=== PATIENT | male | born 1985 | race Two or more races ===

== ENCOUNTER 2018-06-09 15:24 | Emergency (ER) | payer SELFPAY ==
[~2018-06-09] VITALS: Ht 177.8 cm; Wt 81.6 kg
--- NOTE | 2018-06-09 16:12 | PHYS DOC ---
Adult General Chief Complaint Chief Complaint: ABDOMINAL PAIN HPI HPI Patient is a 32 year old medical presents with mild right upper quadrant abdominal pain intermittently for 2 weeks. Patient describes the pain as sharp. Denies any nausea vomiting, denies any diarrhea. Denies any chance he is constipated. Patient states his pain is sometimes relieved with burping. Review of Systems Review of Systems Constitutional: Denies fever or chills [] Eyes: Denies change in visual acuity, redness, or eye pain [] HENT: Denies nasal congestion or sore throat [] Respiratory: Denies cough or shortness of breath [] Cardiovascular: No additional information not addressed in HPI [] GI: Reports right upper quadrant abdominal pain, denies nausea, vomiting, bloody stools or diarrhea [] : Denies dysuria or hematuria [] Musculoskeletal: Denies back pain or joint pain [] Integument: Denies rash or skin lesions [] Neurologic: Denies headache, focal weakness or sensory changes [] All other systems were reviewed and found to be within normal limits, except as documented in this note. Current Medications Current Medications Current Medications Medications (Trade) Dose Ordered Sig/Shanelle Start Time Stop Time Status Last Admin Dose Admin Famotidine (Pepcid Vial) 20 mg 1X ONCE 06/09/18 16:15 06/09/18 17:29 DC Fentanyl Citrate (Fentanyl 2ml Vial) 50 mcg 1X ONCE 06/09/18 16:15 18 17:29 DC Sodium Chloride 1,000 ml @ 1,000 mls/hr 1X ONCE 06/09/18 16:15 18 17:29 DC 18 17:25 1,000 MLS/HR Allergies Allergies Allergies Coded Allergies Type Severity Reaction Last Updated Verified No Known Drug Allergies 06/09/18 No Physical Exam Physical Exam Constitutional: Well developed, well nourished, no acute distress, non-toxic appearance. [] HENT: Normocephalic, atraumatic, bilateral external ears normal, oropharynx moist, no oral exudates, nose normal. [] Eyes: PERRLA, EOMI, conjunctiva normal, no discharge. [] Neck: Normal range of motion, no tenderness, supple, no stridor. [] Cardiovascular:Heart rate regular rhythm, no murmur [] Lungs & Thorax: Bilateral breath sounds clear to auscultation [] Abdomen: Bowel sounds normal, soft, mild tenderness to the right upper quadrant with negative Blackwell sign, no right lower quadrant tenderness, no guarding, no rebound tenderness negative psoas sign, negative obturator sign, negative Rovsing sign, no masses, no pulsatile masses. [] Skin: Warm, dry, no erythema, no rash. [] Back: No tenderness, no CVA tenderness. [] Extremities: No tenderness, no cyanosis, no clubbing, ROM intact, no edema. [] Neurologic: Alert and oriented X 3, normal motor function, normal sensory function, no focal deficits noted. [] Psychologic: Affect normal, judgement normal, mood normal. [] Current Patient Data Vital Signs Vital Signs Date Time Temp Pulse Resp B/P (MAP) Pulse Ox O2 Delivery O2 Flow Rate FiO2 06/09/18 18:35 76 118/70 (86) 96 06/09/18 17:30 16 Room Air 06/09/18 15:55 98.5 98.5 Lab Values Laboratory Tests Test 06/09/18 16:30 06/09/18 17:15 White Blood Count 8.1 x10^3/uL (4.0-11.0) Red Blood Count 5.23 x10^6/uL (4.30-5.70) Hemoglobin 16.3 g/dL (13.0-17.5) Hematocrit 46.4 % (39.0-53.0) Mean Corpuscular Volume 89 fL (79-100) Mean Corpuscular Hemoglobin 31 pg (25-35) Mean Corpuscular Hemoglobin Concent 35 g/dL (31-37) Red Cell Distribution Width 13.1 % (11.5-14.5) Platelet Count 202 x10^3/uL (140-400) Neutrophils (%) (Auto) 72 % (31-73) Lymphocytes (%) (Auto) 22 % (24-48) L Monocytes (%) (Auto) 6 % (0-9) Eosinophils (%) (Auto) 0 % (0-3) Basophils (%) (Auto) 0 % (0-3) Neutrophils # (Auto) 5.8 x10^3uL (1.8-7.7) Lymphocytes # (Auto) 1.8 x10^3/uL (1.0-4.8) Monocytes # (Auto) 0.4 x10^3/uL (0.0-1.1) Eosinophils # (Auto) 0.0 x10^3/uL (0.0-0.7) Basophils # (Auto) 0.0 x10^3/uL (0.0-0.2) Sodium Level 140 mmol/L (136-145) Potassium Level 3.6 mmol/L (3.5-5.1) Chloride Level 104 mmol/L (98-107) Carbon Dioxide Level 25 mmol/L (21-32) Anion Gap 11 (6-14) Blood Urea Nitrogen 13 mg/dL (8-26) Creatinine 1.0 mg/dL (0.7-1.3) Estimated GFR (Cockcroft-Gault) 86.6 BUN/Creatinine Ratio 13 (6-20) Glucose Level 96 mg/dL (70-99) Calcium Level 9.5 mg/dL (8.5-10.1) Total Bilirubin 0.8 mg/dL (0.2-1.0) Aspartate Amino Transferase (AST) 31 U/L (15-37) Alanine Aminotransferase (ALT) 71 U/L (16-63) H Alkaline Phosphatase 86 U/L (46-116) Total Protein 7.9 g/dL (6.4-8.2) Albumin 4.2 g/dL (3.4-5.0) Albumin/Globulin Ratio 1.1 (1.0-1.7) Lipase 129 U/L (73-393) Ethyl Alcohol Level < 10 mg/dL (0-10) Urine Collection Type Unknown Urine Color Yellow Urine Clarity Clear Urine pH 6.5 Urine Specific Bronson 1.010 Urine Protein Negative mg/dL (NEG-TRACE) Urine Glucose (UA) Negative mg/dL (NEG) Urine Ketones (Stick) Negative mg/dL (NEG) Urine Blood Negative (NEG) Urine Nitrite Negative (NEG) Urine Bilirubin Negative (NEG) Urine Urobilinogen Dipstick 0.2 mg/dL (0.2 mg/dL) Urine Leukocyte Esterase Negative (NEG) Urine RBC 0 /HPF (0-2) Urine WBC 0 /HPF (0-4) Urine Bacteria 0 /HPF (0-FEW) Urine Opiates Screen Neg (NEG) Urine Methadone Screen Neg (NEG) Urine Barbiturates Neg (NEG) Urine Phencyclidine Screen Neg (NEG) Urine Amphetamine/Methamphetamine Neg (NEG) Urine Benzodiazepines Screen Neg (NEG) Urine Cocaine Screen Neg (NEG) Urine Cannabinoids Screen Neg (NEG) Urine Ethyl Alcohol Neg (NEG) Laboratory Tests 06/09/18 16:30 Laboratory Tests 06/09/18 16:30 EKG EKG [] Radiology/Procedures Radiology/Procedures []PROCEDURE: ACUTE ABDOMEN SERIES Examination: ACUTE ABDOMEN SERIES History: ER PATIENT. ABDOMEN PAIN X1 MONTH. NO PRIORS Comparison/Correlation: None Findings: Frontal view of the chest was obtained. Upright and supine view of the abdomen were provided. Heart size and pulmonary vasculature are normal. No infiltrate. Minimal right lateral basilar discoid atelectasis may present. No pneumothorax. No subdiaphragmatic extraluminal gas identified. Fluid levels are present within nondistended bowel. No obstruction. No suspicious abdominal calcification. Impression: No infiltrate. No bowel obstruction. Fluid levels in bowel may represent gastroenteritis. Electronically signed by: London Wilson MD (06/09/2018 6:17 PM) [facility] DICTATED and SIGNED BY: SARAH MARTINEZ MD DATE: 06/09/18 1815 PROCEDURE: ABDOMEN COMPLETE Complete abdominal ultrasound History: ABDOMEN PAIN. Right upper quadrant pain. Findings: Aorta: Poorly visualized Inferior vena cava: Poorly visualized Pancreas: Poorly visualized Liver: Hyperechoic, compatible with fatty infiltration. This does limit penetration of the liver may compromise further evaluation. Gallbladder: No evidence of gallstone. Bile ducts: No evidence of dilatation Right kidney: 12.9 cm length. No evidence of hydronephrosis. Left kidney: 12.6 cm length. No evidence of hydronephrosis. Spleen: Not enlarged Impression: 1. Poor visualization of midline structures. 2. Hepatic steatosis. Electronically signed by: Amari Garcias MD (06/09/2018 5:34 PM) [id number] DICTATED and SIGNED BY: AMARI GARCIAS MD DATE: 06/09/18 1731 Course & Med Decision Making Course & Med Decision Making Pertinent Labs and Imaging studies reviewed. (See chart for details) This is a 32-year-old male patient presented to the ED today with complaints of right upper quadrant abdominal pain for 2 weeks. CBC with a normal WBC, CMP with with no acute findings, urine analysis is negative for infection, abdominal ultrasound is negative for any acute findings, acute abdominal series was noted for possible gastroenteritis. 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 He is denying any vomiting. Patient will be discharged with dicyclomine. Also given prescription for Imodium. Tylenol or Motrin for pain. Provided GI for follow-up as an outpatient. Dragon Disclaimer Dragon Disclaimer This electronic medical record was generated, in whole or in part, using a voice recognition dictation system. Departure Departure Impression: Primary Impression: Abdominal pain Additional Impression: Diarrhea Disposition: HOME, SELF-CARE Condition: STABLE Referrals: AIDEE KOTHARI MD follow up next week Patient Instructions: Abdominal Pain, Chronic Diarrhea Additional Instructions: You were evaluated in the emergency room for abdominal pain. Follow-up with the provided specialist in the next 1 week. Take the medications prescribed as ordered. Come back to the ED at any point symptoms worsen. Scripts Loperamide HCl (Imodium A-D) 2 Mg Capsule 2 MG PO TID, #12 CAP Prov: AGATA BARBER APRN 06/09/18 Dicyclomine Hcl (DICYCLOMINE HCL) 20 Mg Tablet 1 TAB PO TID, #30 TAB 1 Refill Prov: AGATA BARBER APRN 06/09/18 Problem Qualifiers Primary Impression: Abdominal pain Abdominal location: right upper quadrant Qualified Codes: R10.11 - Right upper quadrant pain Additional Impression: Diarrhea Diarrhea type: unspecified type Qualified Codes: R19.7 - Diarrhea, unspecified AGATA BARBER APRN Jun 09, 2018 16:12
[2018-06-09] MEDS ORDERED: fentaNYL PF VIAL 100 MCG/2 ML VIAL IV ONE (16:15)
[2018-06-09] MEDS ORDERED: IV NORMAL SALINE 1000ML BAG 1,000 ML IV ONE (16:15)
[2018-06-09] MEDS ORDERED: FAMOTIDINE 20 MG/2 ML VIAL IVP ONE (16:15)
[2018-06-09 16:59] LABS: BASO % 0 % (0-3); EOS % 0 % (0-3); HEMATOCRIT 46.4 % (39.0-53.0); HEMOGLOBIN 16.3 g/dL (13.0-17.5); LYMPH # 1.8 x10^3/uL (1.0-4.8); LYMPH % 22 % (24-48); MEAN CORPUSCULAR HEMOGLOBIN 31 pg (25-35); MEAN CORPUSCULAR HGB CONC 35 g/dL (31-37); MEAN CORPUSCULAR VOLUME 89 fL (79-100); MONO # 0.4 x10^3/uL (0.0-1.1); MONO % 6 % (0-9); NEUT # 5.8 x10^3uL (1.8-7.7); NEUT % 72 % (31-73); PLATELET COUNT 202 x10^3/uL (140-400); RED BLOOD COUNT 5.23 x10^6/uL (4.30-5.70); RED CELL DISTRIBUTION WIDTH 13.1 % (11.5-14.5); WHITE BLOOD COUNT 8.1 x10^3/uL (4.0-11.0)
[2018-06-09 17:06] LABS: CALCIUM 9.5 mg/dL (8.5-10.1); GFR 86.6; POTASSIUM 3.6 mmol/L (3.5-5.1)
[2018-06-09 17:12] LABS: ALBUMIN 4.2 g/dL (3.4-5.0); ALBUMIN/GLOBULIN RATIO 1.1 (1.0-1.7); TOTAL BILIRUBIN 0.8 mg/dL (0.2-1.0); TOTAL PROTEIN 7.9 g/dL (6.4-8.2)
--- NOTE | 2018-06-09 17:38 | RAD ---
Complete abdominal ultrasound History: ABDOMEN PAIN. Right upper quadrant pain. Findings: Aorta: Poorly visualized Inferior vena cava: Poorly visualized Pancreas: Poorly visualized Liver: Hyperechoic, compatible with fatty infiltration. This does limit penetration of the liver may compromise further evaluation. Gallbladder: No evidence of gallstone. Bile ducts: No evidence of dilatation Right kidney: 12.9 cm length. No evidence of hydronephrosis. Left kidney: 12.6 cm length. No evidence of hydronephrosis. Spleen: Not enlarged Impression: 1. Poor visualization of midline structures. 2. Hepatic steatosis. Electronically signed by: Amari Garcias MD (06/09/2018 5:34 PM) [id number]
[2018-06-09 17:44] LABS: BILIRUBIN,URINE NEGATIVE (NEG); CLARITY,URINE CLEAR; COLOR,URINE YELLOW; NITRITE,URINE NEGATIVE (NEG); PH,URINE 6.5; PROTEIN,URINE NEGATIVE (NEG-TRACE); UROBILINOGEN,URINE 0.2 mg/dL (0.2 mg/dL)
[2018-06-09 17:50] LABS: BARBITURATES NEG (NEG); BENZODIAZEPINES NEG (NEG); CANNABINOIDS NEG (NEG); COCAINE NEG (NEG); METHADONE NEG (NEG); OPIATES NEG (NEG); PHENCYCLIDINE NEG (NEG)
[2018-06-09 17:53] LABS: AMPHETAMINE/METHAMPHETAMINE NEG (NEG)
--- NOTE | 2018-06-09 18:21 | RAD ---
Examination: ACUTE ABDOMEN SERIES History: ER PATIENT. ABDOMEN PAIN X1 MONTH. NO PRIORS Comparison/Correlation: None Findings: Frontal view of the chest was obtained. Upright and supine view of the abdomen were provided. Heart size and pulmonary vasculature are normal. No infiltrate. Minimal right lateral basilar discoid atelectasis may present. No pneumothorax. No subdiaphragmatic extraluminal gas identified. Fluid levels are present within nondistended bowel. No obstruction. No suspicious abdominal calcification. Impression: No infiltrate. No bowel obstruction. Fluid levels in bowel may represent gastroenteritis. Electronically signed by: London Wilson MD (06/09/2018 6:17 PM) [facility]
[2018-06-09 18:25] LABS: BACTERIA,URINE 0 /HPF (0-FEW); RBC,URINE 0 /HPF (0-2); WBC,URINE 0 /HPF (0-4)
[2018-06-09 18:35] VITALS: BP 118/70
[2018-06-09] MEDS ORDERED: LOPE2CAP88 PO (19:18)
[2018-06-09] MEDS ORDERED: DICY20TA3 PO (19:18)
== END 2018-06-09 19:30 | disposition home or self-care (01) ==
LOC: ER 15:24
DX: R10.11 Right upper quadrant pain (principal); R19.7 Diarrhea, unspecified; K76.0 Fatty (change of) liver, not elsewhere classified
CPT/HCPCS: 36415; 74022; 76700; 80053; 80307; 81001; 83690; 85025; 96360; 99284; G0480; J7030